=== PATIENT | male | born 2000 | race Caucasian/White ===

== ENCOUNTER 2020-07-07 18:35 | Emergency (ER) | payer OTHER, SELFPAY ==
[2020-07-07 18:36] VITALS: BP 139/84; PULSE 81; RESP 17; TEMP 36.6; O2SAT 96; BMI 18.3
--- NOTE | 2020-07-07 19:08 | CT_ITS ---
STUDY: CT BRAIN WITHOUT CONTRAST REASON FOR EXAM: Male, 20 years old. Pain headache RADIATION DOSAGE (If Supplied By Facility): CTDIvol = ( 44.99 ) mGy, DLP = ( 829.85 ) mGycm TECHNIQUE: Transaxial CT imaging of the brain was performed without administration of intravenous contrast material. Individualized dose optimization techniques were used for this CT. COMPARISON: No relevant priors. FINDINGS: Brain parenchyma is without focal lesions, mass effect, acute intracranial hemorrhage, extra parenchymal fluid collections, hydrocephalus or herniation. The skull is intact. CT/Brain/Head without Contrast IMPRESSION: 1. Normal CT brain. Electronically Signed: Eliot Marquez MD at 19:35 EDT Tel , Service support ,
--- NOTE | 2020-07-07 19:09 | EX.ED.VIS.HA ---
HPI History of Present Illness Chief Complaint: Headache Informant: patient and parent Narrative Narrative: Patient presents with a headache. This headache is been ongoing for almost 1 week. He describes sharp pains in the right side of his head that radiates back. It focuses more in the temporal area. He went to the ENT physician on Friday of this week and everything was normal at that time. Has been taking ibuprofen without any relief. Denies any neck pain. He is on no blood thinning medications. He denies any falls or trauma. He does admit to photophobia. No history of migraine headaches in the past. PFSH PFSH Home Medications albuterol sulfate [Proair Hfa] 1 - 2 puff INHALATION Q4H PRN PRN 05/14/13 [History Last Taken Unknown] hydrocodone-acetaminophen [Vicodin 5-300 mg Tablet] 1 tab PO Q4H PRN PRN #20 tab 05/14/13 [Rx Last Taken Unknown] montelukast 10 mg PO DAILY 05/14/13 [History Last Taken Unknown] ondansetron 4 mg PO Q8H PRN PRN #10 tab 05/14/13 [Rx Last Taken Unknown] Allergy/AdvReac Type Severity Reaction Status Date / Time amoxicillin trihydrate Allergy Rash Verified 05/14/13 18:36 [From Trimox] Social History Smoking Status: Never smoker ROS ROS ED Constitutional Constitutional ED: Denies chills or fever(s) Eyes Eyes: Denies blurry vision, change in vision or diplopia ENT ENT ED: Denies ear pain, rhinorrhea or sore throat Cardiovascular Cardiovascular: Denies chest pain or palpitations Respiratory/Chest Respiratory/Chest: Denies cough, dyspnea or sputum Gastrointestinal Gastrointestinal: Denies abdominal pain, diarrhea, nausea or vomiting Genitourinary Genitourinary ED: Denies dysuria, hematuria or urinary frequency Musculoskeletal Musculoskeletal: Denies back pain or neck pain Integumentary Denies change in pigmentation or rash Neurologic Neurologic: Reports headache(s) Psychiatric Psychiatric: Denies anxiety or depression Endocrine Endocrinology: Denies polydipsia or polyuria EXAM Physical Exam Const Vital Signs: 07/07/20 18:36 Temperature 97.9 F Temperature Source Temporal Pulse Rate 81 Respiratory Rate 17 Blood Pressure 139/84 H Blood Pressure Mean 102 Pulse Ox 96 Oxygen Delivery Method Room Air Positive well nourished and well developed General Appearance ED: well developed and NAD HEENT Reports normocephalic and moist mucous membranes normocephalic and atraumatic; Negative for trauma, tenderness or temporal artery tenderness Eyes PERRL and EOMs intact bilaterally Neck supple and no JVD Chest Wall Chest: Negative for tenderness Resp normal respiratory effort and clear to auscultation bilaterally Effort and Inspection: Negative for respiratory distress Cardio regular rate, regular rhythm and no murmurs Rate: regular rate Rhythm: regular rhythm GI soft to palpation, non-tender and non-distended Palpation: soft Back/Spine no CVA tenderness and no thoracic nor lumbar tenderness Cervical Spine: Negative for cervical spine tenderness Extremity normal to inspection and full ROM General Extremety ED: Negative for tenderness Neuro oriented x3, CN's II-XII intact bilaterally and no sensory deficits noted Neuro Narrative: Ambulation is normal. Sensation is equal throughout. Sensorium / Orientation: awake and alert Motor Exam: strength 5/5 throughout Psych mental status grossly normal Skin no rashes or lesions noted MDM MDM MDM Narrative Medical decision making narrative: Patient was given IV fluids, Compazine and Benadryl. CAT scan of the head was obtained due to his history. It does not show any acute findings. Upon reevaluation he was symptomatically improved. Patient will be discharged to follow-up with his PCP. Radiography Diagnostic Testing: Radiology Impression Brain CT 07/07/20 19:08 IMPRESSION: 1. Normal CT brain. Electronically Signed: Eliot Marquez MD at 19:35 EDT Tel , Service support , Discharge Plan Triage Chief Complaint: Headache ED Provider: Guru King Dx/Rx/DC Orders Clinical Impression: Headache Instructions: ED Headache Unspecified Prescriptions: No Action montelukast 10 MG tablet 10 mg PO DAILY RF: 0 albuterol sulfate [ProAir HFA] 1 PUFF inhaler 1 - 2 puff inhalation Q4H PRN PRN (Reason: Asthma) RF: 0 ondansetron 4 MG tablet 4 mg PO Q8H PRN PRN (Reason: Nausea) Qty: 10 RF: 0 hydrocodone-acetaminophen [Vicodin] 1 EACH tablet 1 tab PO Q4H PRN PRN (Reason: Pain) Qty: 20 RF: 0 Primary Care Provider: Darryn Diaz Referrals: Darryn Diaz DO [Primary Care Provider] - Disposition Disposition: Home, self care
[2020-07-07] MEDS: proCHLORPERazine 10 MG/2 ML Vial IV (19:42)
[2020-07-07] MEDS: 0.9% Normal Saline 1,000 ML 999 ML IV (19:42)
[2020-07-07] MEDS: DiphenhydrAMINE 50 MG/ML Syringe 25 MG IV (19:42)
== END 2020-07-07 20:32 | disposition home or self-care (01) ==
PROVIDERS: Emergency Provider Emergency Medicine; PCP Pediatrics
DX: R51.9 Headache, unspecified (principal); H53.149 Visual discomfort, unspecified
CPT/HCPCS: 70450; 96361; 96374; 96375; 99283; J7030; A4216